=== PATIENT | female | born 1995 | race Two or more races ===

== ENCOUNTER 2018-05-11 09:54 | Emergency (ER) | payer OTHER ==
[2018-05-11 11:14] LABS: INFLUENZA A AMPLIFICATION NEGATIVE (NEGATIVE); INFLUENZA B AMPLIFICATION NEGATIVE (NEGATIVE)
== END 2018-05-11 11:53 | disposition home or self-care (01) ==
LOC: M ED 09:54
DX: J06.9 Acute upper respiratory infection, unspecified (principal); D64.9 Anemia, unspecified; J45.909 Unspecified asthma, uncomplicated
CPT/HCPCS: 87502

== ENCOUNTER 2019-06-28 04:38 | Outpatient (CLI) | payer OTHER ==
[~2019-06-28] VITALS: Ht 162.6 cm; Wt 86.5 kg
[2019-06-28 04:59] VITALS: BP 127/72
[2019-06-28 05:44] LABS: HEMATOCRIT 35.2 % (36.0-47.0); HEMOGLOBIN 11.5 g/dl (12.0-15.5); MEAN CORPUSCULAR HEMOGLOBIN 30.3 pg (27.0-33.0); MEAN CORPUSCULAR HGB CONC 32.7 g/dl (32.0-36.5); MEAN CORPUSCULAR VOLUME 92.6 fl (80.0-96.0); PLATELET COUNT, AUTOMATED 165 10^3/uL (150-450); WHITE BLOOD COUNT 14.5 10^3/uL (4.0-10.0)
[2019-06-28 06:41] VITALS: BP 136/74
== END 2019-06-28 06:54 | disposition home or self-care (01) ==
LOC: M LDO 04:38
PROVIDERS: ATTEND Obstetrics & Gynecology
DX: O26.853 Spotting complicating pregnancy, third trimester (principal); O21.2 Late vomiting of pregnancy; O99.89 Other specified diseases and conditions complicating pregnancy, childbirth and the puerperium; R19.7 Diarrhea, unspecified; Z3A.37 37 weeks gestation of pregnancy
CPT/HCPCS: 36415; 59025; 85027; G0378; G0463

== ENCOUNTER → 2020-12-05 | Outpatient (CLI) | payer OTHER ==
--- NOTE | 2020-12-05 14:48 | REP ---
INDICATION: SACROILIITIS COMPARISON: None. TECHNIQUE: AP, lateral, bilateral oblique, and coned-down views of the lumbar spine. FINDINGS: Alignment is maintained in the lateral projection. Chronic scoliosis cannot be excluded. Vertebral bodies are intact. Disc spaces are relatively normal/age-appropriate. No acute fracture/compression injury or subluxation. No obvious spondylolysis or spondylolisthesis.. IMPRESSION: Scoliosis cannot be excluded. <Electronically signed by Corbin Angela > 12/05/20 [id number]
== END ==
LOC: M WUC 13:53
PROVIDERS: ATTEND Internal Medicine
DX: M46.1 Sacroiliitis, not elsewhere classified (principal)

== ENCOUNTER 2021-04-07 11:16 | Day surgery (SDC) | payer OTHER ==
[~2021-04-07] VITALS: Ht 162.6 cm; Wt 73.0 kg
[2021-04-07] MEDS ORDERED: TRAZ-189 PO (11:23)
[2021-04-07] MEDS ORDERED: CITA10TA5 PO (11:23)
[2021-04-07] MEDS ORDERED: ACET-897 PO (11:23)
[2021-04-07] MEDS ORDERED: diphenhydrAMINE 50MG/ML VIAL (J1200) IV ONE (14:40)
[2021-04-07] MEDS ORDERED: NS 1,000 ML IV ONE (14:40)
[2021-04-07] MEDS ORDERED: ACETAMINOPHEN 500 MG TAB PO ONE (14:40)
[2021-04-07] MEDS ORDERED: KETOROLAC 30 MG/ML 1ML VIAL IV ONE (14:40)
[2021-04-07 14:58] LABS: BASO % 0.5 % (0.0-1.0); EOS % 0.5 % (0.0-3.0); HEMATOCRIT 39.8 % (36.0-47.0); HEMOGLOBIN 13.6 g/dl (12.0-15.5); LYMPH # 1.8 10^3/uL (1.5-5.0); LYMPH % 21.2 % (24.0-44.0); MEAN CORPUSCULAR HEMOGLOBIN 31.1 pg (27.0-33.0); MEAN CORPUSCULAR HGB CONC 34.2 g/dl (32.0-36.5); MEAN CORPUSCULAR VOLUME 91.1 fl (80.0-96.0); MONO # 0.4 10^3/uL (0.0-0.8); MONO % 4.4 % (2.0-8.0); NEUTROPHILS # 6.1 10^3/uL (1.5-8.5); NEUTROPHILS % 73.2 % (36.0-66.0); PLATELET COUNT, AUTOMATED 256 10^3/uL (150-450); RED BLOOD COUNT 4.37 10^6/uL (4.00-5.40); WHITE BLOOD COUNT 8.4 10^3/uL (4.0-10.0)
[2021-04-07] MEDS ORDERED: ACETAMINOPHEN 500 MG TAB PO PRN (16:40)
[2021-04-07] MEDS ORDERED: LR 1,000 ML IV SCH (16:40)
[2021-04-07 17:01] LABS: RSV AMPLIFICATION NEGATIVE (NEGATIVE)
--- NOTE | 2021-04-07 18:08 | HPE ---
HISTORY AND PHYSICAL DATE OF ADMISSION: 04/07/2021 CHIEF COMPLAINT: Intractable headache. HISTORY OF PRESENT ILLNESS: The patient is a 26-year-old with chronic back pain, underwent an injection at [facility] office three days ago. I am told it was an epidural injection. I do not have those records. She has had a headache since then that has gotten progressively worse. Conservative treatment, pushing fluids and caffeine has not helped. She has a history of migraines but this feels more severe than typical migraine. She has photophobia with it. She denies neck stiffness or focal neurologic deficits with it. The Emergency Room provider called the anesthesiologist who performed the procedure at [facility] who recommended admission for a blood patch. They lack admission privileges so the Emergency Room provider spoke with [facility] who agreed to see the patient in the Emergency Room for consideration of a blood patch. MEDICAL HISTORY: Past history shows chronic back pain, history of migraine headaches, history of some ovarian cysts. REVIEW OF SYSTEMS: She has a headache, worse if she is standing, better if she lies flat. There is some nausea and photophobia with it. No diplopia or neck stiffness. MEDICATIONS: 1. Citalopram 10 mg daily. 2. Trazodone 20 mg at bedtime. 3. Tylenol as needed. PHYSICAL EXAMINATION: VITAL SIGNS: As listed. GENERAL APPEARANCE: She is alert, oriented, conversant, lying in darkened room. HEENT: Pupils equal, round, reactive to light. Tympanic membranes (TMs) and oropharynx benign. No facial droop or weakness. NECK: No masses. Supple. There is no nuchal rigidity. LUNGS: Clear. HEART: Regular rate and rhythm. ABDOMEN: Soft, nontender. No masses. EXTREMITIES: Normal strength in the arms and legs. Normal reflexes and sensation. LABS: White count 8.4, hemoglobin 13.6, platelets 256, glucose 97, sodium 142, potassium 3.8, creatinine 0.5. test negative. IMPRESSION: Spinal headache. PLAN: Anesthesia is going to assess her for a blood patch. I have ordered IV fluids for her. Out of bed to chair as tolerated and when she feels well enough to go home, we will discharge her.
[2021-04-07 19:30] VITALS: BP 158/92
== END 2021-04-07 19:30 | disposition home or self-care (01) ==
LOC: M ED 11:16 → M SDC 11:17 → M ED INP 11:17 → UNDOADMOB 11:17 → ENRESERV 17:19 → M SDC 19:30
PROVIDERS: ATTEND Anesthesiology
DX: G97.1 Other reaction to spinal and lumbar puncture (principal); M51.16 Intervertebral disc disorders with radiculopathy, lumbar region; D64.9 Anemia, unspecified; F41.9 Anxiety disorder, unspecified; G43.909 Migraine, unspecified, not intractable, without status migrainosus; J45.909 Unspecified asthma, uncomplicated; F99 Mental disorder, not otherwise specified; Z79.899 Other long term (current) drug therapy
CPT/HCPCS: 36415; 62273; 80047; 84702; 85025; 87631; 96361; 96374; 96375; 99284; J1200; J1885

== ENCOUNTER → 2021-05-30 | Outpatient (REF) | payer OTHER ==
[~2021-05-30] MED LIST: ACET-897 PO; CITA10TA5 PO; TRAZ-189 PO
[2021-05-30 23:35] LABS: GC DNA AMPLIFICATION NEGATIVE (NEGATIVE)
== END ==
LOC: M LAB REF 20:00
PROVIDERS: ATTEND Physician Assistant
DX: J02.9 Acute pharyngitis, unspecified (principal)

== ENCOUNTER → 2021-07-14 | Outpatient (REF) | payer OTHER ==
[~2021-07-14] MED LIST changes: -CITA10TA5 PO; +CITA10TA7 PO
== END ==
LOC: M WUC 19:41
PROVIDERS: ATTEND Physician Assistant
DX: J02.9 Acute pharyngitis, unspecified (principal)

== ENCOUNTER → 2022-06-26 | Outpatient (CLI) | payer OTHER | LOC: M WHC 14:08 | PROVIDERS: ATTEND Nurse Practitioner Family | DX: O92.6 Galactorrhea (principal); N64.4 Mastodynia ==